=== PATIENT | male | born 1965 | race Caucasian/White ===

== ENCOUNTER → 2023-11-05 12:56 | Outpatient (REF) | payer OTHER, SELFPAY | LOC: MRI 3T 12:56 | PROVIDERS: ATTENDING PHYSICIAN Advanced Practice Midwife; FAMILY PHYSICIAN Physician Assistant; REFERRING PHYSICIAN Internal Medicine Cardiovascular Disease | DX: R97.20 Elevated prostate specific antigen [PSA] (principal) | CPT/HCPCS: 72197; A9575 ==